=== PATIENT | female | born 1975 | race African-American/Black ===

== ENCOUNTER → 2021-04-05 | Outpatient (CLI) | payer OTHER | LOC: RAD 13:48 | PROVIDERS: ATTEND Internal Medicine Interventional Cardiology | DX: I10 Essential (primary) hypertension (principal) | CPT/HCPCS: 93306 ==

== ENCOUNTER → 2021-06-22 | Outpatient (CLI) | payer OTHER ==
[~2021-06-22] MED LIST: COVID-19 VACC, MRNA(MODERNA)/PF 100 MCG/0.5 ML VIAL IM ONE
== END ==
LOC: VACCPMC 17:46
DX: Z23 Encounter for immunization (principal); Z20.822 Contact with and (suspected) exposure to COVID-19
CPT/HCPCS: 91301

== ENCOUNTER → 2021-08-10 | Outpatient (CLI) | payer OTHER | LOC: VACCPMC 15:57 | DX: Z23 Encounter for immunization (principal); Z20.822 Contact with and (suspected) exposure to COVID-19 ==

== ENCOUNTER 2023-01-05 18:25 | Emergency (ER) | payer OTHER ==
[~2023-01-05] VITALS: Ht 165.1 cm; Wt 78.0 kg
[2023-01-05] MEDS ORDERED: ONDANSETRON ODT4 MG PO (21:01)
[2023-01-05] MEDS ORDERED: ACETAMINOPHEN-1 EAC4 PO (21:01)
[2023-01-05 21:18] VITALS: BP 134/79
== END 2023-01-05 21:19 | disposition home or self-care (01) ==
LOC: ER 18:39
DX: M79.605 Pain in left leg (principal); R60.9 Edema, unspecified
CPT/HCPCS: 93971; 99283